=== PATIENT | male | born 1990 | race African-American/Black ===

== ENCOUNTER 2019-10-12 09:25 | Emergency (ER) | payer OTHER ==
[~2019-10-12] VITALS: Ht 170.2 cm; Wt 115.5 kg
[2019-10-12] MEDS ORDERED: LIDOCAINE W/EPINEPHRINE 1% 20ML VIAL INFIL ONE (10:15)
[2019-10-12 10:27] LABS: BASO % 0.4 % (0.0-1.0); EOS # 0.1 10^3/uL (0.0-0.5); EOS % 1.1 % (0.0-3.0); HEMATOCRIT 48.7 % (42.0-52.0); HEMOGLOBIN 14.8 g/dl (13.5-17.5); LYMPH # 1.7 10^3/uL (1.5-5.0); LYMPH % 17.1 % (24.0-44.0); MEAN CORPUSCULAR HEMOGLOBIN 24.5 pg (27.0-33.0); MEAN CORPUSCULAR HGB CONC 30.4 g/dl (32.0-36.5); MEAN CORPUSCULAR VOLUME 80.6 fl (80.0-96.0); MONO # 0.9 10^3/uL (0.0-0.8); MONO % 8.8 % (0.0-5.0); NEUTROPHILS % 71.8 % (36.0-66.0); PLATELET COUNT, AUTOMATED 239 10^3/uL (150-450); RED BLOOD COUNT 6.04 10^6/uL (4.30-6.10); WHITE BLOOD COUNT 9.7 10^3/uL (4.0-10.0)
[2019-10-12 11:16] VITALS: BP 152/90
== END 2019-10-12 11:18 | disposition home or self-care (01) ==
LOC: EEVIPCON 09:25 → M ED 09:25
DX: L02.412 Cutaneous abscess of left axilla (principal); B95.62 Methicillin resistant Staphylococcus aureus infection as the cause of diseases classified elsewhere; F17.218 Nicotine dependence, cigarettes, with other nicotine-induced disorders; F12.10 Cannabis abuse, uncomplicated